=== PATIENT | female | born 1950 ===

== ENCOUNTER 2017-06-17 15:48 | Inpatient (IN) | payer MEDICARE, MEDICAID ==
[2017-06-17] MEDS ORDERED: Sodium Chloride 0.9% 1,000 ML IV STA (16:29)
[2017-06-17 16:46] LABS: BASO # 0.1 K/uL (0.0-0.2); BASO % 1.1 % (0.0-2.0); EOS # 0.2 K/uL (0.0-0.7); EOS % 2.3 % (0.0-4.0); HEMOGLOBIN 12.3 g/dL (11.0-16.0); LYMPH # 2.3 K/uL (1.0-4.3); LYMPH % 32.8 % (20.0-40.0); MEAN CELL VOLUME 87.3 fL (81.0-99.0); MEAN CORPUSCULAR HEMOGLOBIN 30.3 pg (27.0-31.0); MEAN CORPUSCULAR HGB CONC 34.7 g/dL (33.0-37.0); MEAN PLATELET VOLUME 8.1 fL (7.2-11.7); MONO # 0.7 K/uL (0.0-0.8); MONO % 10.2 % (0.0-10.0); NEUT # 3.7 K/uL (1.8-7.0); NEUT % 53.6 % (50.0-75.0); RBC 4.05 Mil/uL (3.80-5.20); RED CELL DISTRIBUTION WIDTH 13.6 % (11.5-14.5); WHITE BLOOD COUNT 6.9 K/uL (4.8-10.8)
--- NOTE | 2017-06-17 16:55 | C.PDOC ---
History Of Present Illness <Arthur Wayne - Last Filed: 06/17/17 17:15> <Sana Larry - Last Filed: 06/17/17 21:20> 66 year old female, with no significant PMHx, presents to ED for evaluation of chest pain for the past week. Pain described as sharp, located in the right parasternal region, and is worse with palpation and movement. Otherwise, denies fever, chills, cough, SOB, nausea, vomiting, or diaphoresis. (Arthur Wayne) History Per: Patient History/Exam Limitations: no limitations <Arthur Wayne - Last Filed: 06/17/17 17:15> <LaronParisrachel - Last Filed: 06/17/17 21:20> Time Seen by Provider: 06/17/17 16:09 Chief Complaint (Nursing): Chest Pain Past Medical History Reviewed: Historical Data, Nursing Documentation, Vital Signs Family History: States: Unknown Family Hx - Social History Hx Alcohol Use: No Hx Substance Use: No - Immunization History Hx Tetanus Toxoid Vaccination: No Hx Influenza Vaccination: Yes Hx Pneumococcal Vaccination: Yes <Arthur Wayne - Last Filed: 06/17/17 17:15> Vital Signs: Last Vital Signs Temp 98.2 F 06/17/17 17:09 Pulse Resp 19 06/17/17 16:10 BP 121/46 L 06/17/17 16:19 Pulse Ox 96 06/17/17 17:15 Review Of Systems Except As Marked, All Systems Reviewed And Found Negative. Constitutional: Negative for: Fever, Chills Cardiovascular: Positive for: Chest Pain. Negative for: Palpitations Respiratory: Negative for: Cough, Shortness of Breath Gastrointestinal: Negative for: Nausea, Vomiting <Arthur Wayne - Last Filed: 06/17/17 17:15> Physical Exam <Arthur Wayne - Last Filed: 06/17/17 17:15> <Sana Larry - Last Filed: 06/17/17 21:20> - Physical Exam Additional Physical Exam Comments: Constitutional: No acute distress. Head: Normocephalic. Atraumatic. Eyes: PERRL. ENT: Moist mucous membranes. Neck: Supple. Cardiovascular: Regular rate. Radial pulse 2+ bilaterally. Chest: Reproducible right parasternal chest tenderness. Respiratory: Clear to auscultation bilaterally. GI: Soft. Nondistended. RLQ tenderness (Pt was unaware of the abdominal pain until the physical exam). Back: No CVA tenderness. Musculoskeletal: No tenderness or swelling of extremities. Skin: No rash. Neurologic: Alert, no focal deficit. (Arthur Wayne) ED Course And Treatment - Laboratory Results Result Diagrams: 06/17/17 16:43 06/17/17 16:43 O2 Sat by Pulse Oximetry: 96 <Arthur Wayne - Last Filed: 06/17/17 17:15> - Laboratory Results Result Diagrams: 06/17/17 16:43 06/17/17 16:43 <LaronParisdi - Last Filed: 06/17/17 21:20> Medical Decision Making <Arthur Wayne - Last Filed: 06/17/17 17:15> <Sana Larry - Last Filed: 06/17/17 21:20> Medical Decision Making: Plan: Abd & Pelvis CT Blood work Urinalysis Urine culture Chest X-ray IV fluids Reassess EKG: NSR 75bpm. No ST/T wave changes. CXR: Impression: Mild venous congestion. Patchy bibasilar airspace opacities. Mamillated right hemidiaphragm with lobulated density at the right lung base. Correlation with prior study may be helpful if clinically indicated. Bibasilar breast and nipple shadows. Tortuous ectatic aorta. Mild cardiomegaly. (Arthur Wayne) Disposition <Arthur Wayne - Last Filed: 06/17/17 17:15> Discussed With : David Coulter Comment: accepted the pt on his service and took over the care at 9:19PM Doctor Will See Patient In The: Hospital Counseled Patient/Family Regarding: Studies Performed, Diagnosis - Disposition Disposition Time: 19:00 - POA Present On Arrival: None <Paris Larrydi - Last Filed: 06/17/17 21:20> - Disposition Disposition: HOSPITALIZED Condition: FAIR Forms: [facility] (Romanian) - Clinical Impression Clinical Impression: Abdominal pain, Acute cholecystitis due to biliary calculus - Scribe Statement The provider has reviewed the documentation as recorded by the Scribe <RosanaArthur Yared - Last Filed: 06/17/17 17:15> <Sana Larry - Last Filed: 06/17/17 21:20> - Scribe Statement Joealonzo Gilbert All medical record entries made by the Scribe were at my direction and personally dictated by me. I have reviewed the chart and agree that the record accurately reflects my personal performance of the history, physical exam, medical decision making, and the department course for this patient. I have also personally directed, reviewed, and agree with the discharge instructions and disposition. (Arthur Wayne) Decision To Admit <Arthur Wayne - Last Filed: 06/17/17 17:15> - Pt Status Changed To: Hospital Disposition Of: Inpatient - Admit Certification Admit to Inpatient:: After my assessment, the patient will require hospitalization for at least two midnights. This is because of the severity of symptoms shown, intensity of services needed, and/or the medical risk in this patient being treated as an outpatient. - InPatient: Physician Admission Certification: I certify that this patient requires 2 or more midnights of care for the following reason:: After my assessment, the patient will require hospitalization for at least two midnights. This is because of the severity of symptoms shown, intensity of services needed, and/or the medical risk in this patient being treated as an outpatient. - . Bed Request Type: Regular Admitting Physician: David Coulter <Sana Larry - Last Filed: 06/17/17 21:20> - . Patient Diagnosis: Abdominal pain, Acute cholecystitis due to biliary calculus
[2017-06-17 16:59] LABS: ALBUMIN 3.6 g/dL (3.5-5.0); ALT/SGPT 11 U/L (9-52); AST/SGOT 24 U/L (14-36); BLOOD UREA NITROGEN 17 mg/dL (7-17); CALCIUM 8.9 mg/dl (8.6-10.4); GFR AFRICAN-AMERICAN > 60; GFR NON-AFRICAN AMERICAN > 60; LIPASE 93 U/L (23-300)
[2017-06-17 17:04] LABS: SQUAMOUS EPITHIAL 2 /hpf (0-5); URINE BILIRUBIN NEGATIVE (NEGATIVE); URINE BLOOD NEGATIVE (NEGATIVE); URINE CLARITY Clear (Clear); URINE COLOR Yellow (YELLOW); URINE GLUCOSE (UA) NORMAL (Normal); URINE PROTEIN NEGATIVE (NEGATIVE); URINE UROBILINOGEN NORMAL mg/dL (0.2-1.0)
[2017-06-17 17:05] LABS: URINE LEUKOCYTE ESTERASE NEGATIVE Leu/uL (Negative)
[2017-06-17 17:10] LABS: CK-MB 0.49 ng/mL (0.0-3.38)
--- NOTE | 2017-06-17 17:13 | RAD ---
Chest x-ray two views History: Chest pain. Comparison: None available. Findings: Mild venous congestion. Patchy bibasilar airspace opacities. Mamillated right hemidiaphragm with lobulated density at the right lung base. Correlation with prior study may be helpful if clinically indicated. Bibasilar breast and nipple shadows. Tortuous ectatic aorta. Mild cardiomegaly. Degenerative changes spine and shoulders. Impression: Mild venous congestion. Patchy bibasilar airspace opacities. Mamillated right hemidiaphragm with lobulated density at the right lung base. Correlation with prior study may be helpful if clinically indicated. Bibasilar breast and nipple shadows. Tortuous ectatic aorta. Mild cardiomegaly.
[2017-06-17] MEDS ORDERED: Iodixanol 320 MG/ML 100 ML BOTTLE IV ONE (18:03)
--- NOTE | 2017-06-17 21:04 | US ---
EXAM: US Abdomen Complete CLINICAL HISTORY: 66 years old, female; Pain; Abdominal pain; Other: Ruq; Additional info: Ruq pain TECHNIQUE: Real-time ultrasound of the abdomen (complete) with image documentation. COMPARISON: CT - ABD PELVIS IV CONTRAST ONLY 2017-06-17 18:13 FINDINGS: Liver: Fatty infiltration of the liver. Gallbladder: Cholelithiasis with immobile stone in the neck of the gallbladder. Reported positive sonographic Santana sign. No gallbladder wall edema. Common bile duct: No dilation. Pancreas: Incompletely evaluated. Kidneys: No acute abnormality as visualized. No hydronephrosis. Spleen: No acute abnormality as visualized. No splenomegaly. Aorta/IVC: No acute abnormality as visualized. Limited evaluation. IMPRESSION: Cholelithiasis with immobile stone in the neck of the gallbladder. Reported positive sonographic Santana sign. Further evaluation can be performed with nuclear hepatobiliary scan as warranted. Fatty infiltration of the liver.
[2017-06-17] MEDS ORDERED: Sodium Chloride 0.9% 1,000 ML IV ONE (21:32)
[2017-06-17] MEDS ORDERED: Morphine 4 MG/ML VIAL IV PRN (21:58)
[2017-06-17 22:26] LABS: AMYLASE 72 U/L (30-110); LIPASE 70 U/L (23-300)
[2017-06-18 06:42] LABS: ALBUMIN 3.1 g/dL (3.5-5.0); ALT/SGPT 21 U/L (9-52); AST/SGOT 20 U/L (14-36); BLOOD UREA NITROGEN 11 mg/dL (7-17); CALCIUM 8.2 mg/dl (8.6-10.4); GFR AFRICAN-AMERICAN > 60; GFR NON-AFRICAN AMERICAN > 60; HDL CHOLESTEROL 35 mg/dL (30-70)
[2017-06-18 06:50] LABS: LDL CHOLESTEROL 152 mg/dL (0-129)
--- NOTE | 2017-06-18 07:21 | CP.PCM.CON ---
<Masoud Vazquez - Last Filed: 06/18/17 10:56> History of Present Illness - History of Present Illness History of Present Illness: PGY5 GI Fellow Consult Note Patient is a 66yo female with no significant PMHx who presented to the ED with complaint of right sided chest pain. The patient is Gujarati speaking, however daughter at bedside to assist with translation. The patient has complained of intermittent right sided parasternal and substernal chest pain for two years, having work up outside the hospital without any significant findings. Pain became more severe yesterday to the point where patient was in tears and family brought her to the ED with concern for [place]. On examination, she had right sided chest wall tenderness which was reproducible on palpation. Moreover, she had significant RUQ abdominal pain which was only first identified during examination yesterday. Patient states pain is currently in the RUQ, cramping in nature and had been worse before PO intake. U/S performed in the ED shows a gallstone in the neck of the gallbladder without any sign of choledocolithiasis. Lab work is unremarkable except for an indirect hyperbilirubinemia. Patient takes Calcium and B12 supplementation but no other OTC medications/supplements/vitamins. Denies nausea, vomiting, weight loss, change in bowel habits. PMHx: Discussed with patient and denies significant past medical history PSHx: FHx: Discussed with patient and denies significant family history Social: Denies tobacco, EtOH or illicit drug use Endo: Colonoscopy 4 years ago in [place] [address] system ROS performed and negative except where stated. Past Patient History - Infectious Disease Hx of Infectious Diseases: None - Past Medical History & Family History Past Medical History?: Yes - Past Social History Smoking Status: Never Smoked - MUSCULOSKELETAL/RHEUMATOLOGICAL Hx Falls: No - PSYCHIATRIC Hx Substance Use: No - SURGICAL HISTORY Hx Tubal Ligation: Yes Other/Comment: 30 YEARS AGO - ANESTHESIA Hx Anesthesia: Yes Hx Anesthesia Reactions: No Hx Malignant Hyperthermia: No Has any member of the family had a problem w/ anesthesia?: No Meds Allergies/Adverse Reactions: Allergies Allergy/AdvReac Type Severity Reaction Status Date / Time No Known Allergies Allergy Verified 06/17/17 16:16 - Medications Medications: Current Medications Enoxaparin Sodium (Lovenox) 40 mg SC DAILY [facility] Sodium Chloride (Sodium Chloride 0.9%) 1,000 mls @ 80 mls/hr IV .[id number] ONE Stop: 06/18/17 10:01 Last Admin: 06/17/17 22:06 Dose: 80 mls/hr Morphine Sulfate (Morphine) 1 mg IV Q6 PRN PRN Reason: Pain, severe (8-10) Last Admin: 06/18/17 05:27 Dose: 1 mg Pantoprazole Sodium (Protonix Inj) 40 mg IVP DAILY [facility] Pneumococcal Polyvalent Vaccine (Pneumovax 23 Vaccine) 0.5 ml IM .ONCE ONE Stop: 06/20/17 10:01 Physical Exam - Constitutional Appears: Non-toxic, No Acute Distress - Eye Exam Eye Exam: EOMI, PERRL - ENT Exam ENT Exam: Mucous Membranes Moist - Respiratory Exam Respiratory Exam: Clear to Auscultation Bilateral. absent: Rales, Rhonchi, Wheezes - Cardiovascular Exam Cardiovascular Exam: RRR, +S1, +S2 - GI/Abdominal Exam GI & Abdominal Exam: Normal Bowel Sounds, Soft, Tenderness (RUQ, RLQ). absent: Distended, Firm, Guarding, Hernia, Organomegaly, Rigid - Extremities Exam Extremities exam: Positive for: normal inspection. Negative for: pedal edema - Neurological Exam Neurological exam: Alert, Oriented x3 - Psychiatric Exam Psychiatric exam: Normal Affect, Normal Mood - Skin Skin Exam: Dry, Warm Results - Vital Signs Recent Vital Signs: Last Vital Signs Temp 98.1 F 06/18/17 00:16 Pulse 61 06/18/17 00:16 Resp 20 06/18/17 00:16 BP 127/84 06/18/17 00:16 Pulse Ox 97 06/18/17 00:16 - Labs Result Diagrams: 06/17/17 16:43 06/18/17 06:09 Labs: Laboratory Results - last 24 hr 06/17/17 06/17/17 06/17/17 16:43 16:43 16:55 WBC 6.9 RBC 4.05 Hgb 12.3 Hct 35.4 MCV 87.3 MCH 30.3 MCHC 34.7 RDW 13.6 Plt Count 258 MPV 8.1 Neut % (Auto) 53.6 Lymph % (Auto) 32.8 [place] % (Auto) 10.2 H Eos % (Auto) 2.3 Baso % (Auto) 1.1 Neut # (Auto) 3.7 Lymph # (Auto) 2.3 [place] # (Auto) 0.7 Eos # (Auto) 0.2 Baso # (Auto) 0.1 Sodium 139 Potassium 4.4 Chloride 104 Carbon Dioxide 27 Anion Gap 12 BUN 17 Creatinine 0.8 Est GFR ( Amer) > 60 Est GFR (Non-Af Amer) > 60 Random Glucose 99 Calcium 8.9 Total Bilirubin 1.4 H Direct Bilirubin AST 24 ALT 11 Alkaline Phosphatase 82 Total Creatine Kinase 137 H CK-MB (Mass) 0.49 Troponin I < 0.0120 Total Protein 7.1 Albumin 3.6 Globulin 3.5 Albumin/Globulin Ratio 1.0 Triglycerides Cholesterol LDL Cholesterol Direct HDL Cholesterol Amylase Lipase 93 Urine Color Yellow Urine Clarity Clear Urine pH 7.0 Ur Specific [place] 1.012 Urine Protein Negative Urine Glucose (UA) Normal Urine Ketones Negative Urine Blood Negative Urine Nitrate Negative Urine Bilirubin Negative Urine Urobilinogen Normal Ur Leukocyte Esterase Negative Urine WBC (Auto) 2 Urine RBC (Auto) 2 Ur Squamous Epith Cells 2 Hyaline Casts 3-5 H 06/17/17 06/18/17 06/18/17 22:12 06:09 06:09 WBC RBC Hgb Hct MCV MCH MCHC RDW Plt Count MPV Neut % (Auto) Lymph % (Auto) [place] % (Auto) Eos % (Auto) Baso % (Auto) Neut # (Auto) Lymph # (Auto) [place] # (Auto) Eos # (Auto) Baso # (Auto) Sodium 141 Potassium 3.8 Chloride 107 Carbon Dioxide 25 Anion Gap 14 BUN 11 Creatinine 0.7 Est GFR ( Amer) > 60 Est GFR (Non-Af Amer) > 60 Random Glucose 91 Calcium 8.2 L Total Bilirubin 1.7 H Direct Bilirubin 0.2 AST 20 ALT 21 Alkaline Phosphatase 82 Total Creatine Kinase CK-MB (Mass) Troponin I Total Protein 6.2 L Albumin 3.1 L Globulin 3.1 Albumin/Globulin Ratio 1.0 Triglycerides 132 Cholesterol 199 LDL Cholesterol Direct 152 H HDL Cholesterol 35 Amylase 72 Lipase 70 Urine Color Urine Clarity Urine pH Ur Specific [place] Urine Protein Urine Glucose (UA) Urine Ketones Urine Blood Urine Nitrate Urine Bilirubin Urine Urobilinogen Ur Leukocyte Esterase Urine WBC (Auto) Urine RBC (Auto) Ur Squamous Epith Cells Hyaline Casts Assessment & Plan - Assessment and Plan (Free Text) Assessment: Patient is a 66yo female with no significant PMHx who presented to the ED with complaint of right sided chest pain and was found to have RUQ abdominal pain on examination. -Cholelithiasis with biliary colic -Indirect hyperbilirubinemia, likely Gilbert syndrome Plan: -Pain c/w cholelithiasis/biliary colic without evidence of cholecystitis or choledocolithiasis -Lab work is not c/w choledocolithiasis, U/S showing normal CBD; MRCP not indicated at this time -Calcified stone noted in GB neck on CT; noted on U/S as well -Request surgical consultation -Indirect hyperbilirubinemia noted; likely Gilbert syndrome -Low fat diet unless NPO for surgery -No further recommendations at this time - Date & Time Date: 06/18/17 Time: 07:00 <Gloria Reeves - Last Filed: 06/18/17 14:01> Meds - Medications Medications: Current Medications Enoxaparin Sodium (Lovenox) 40 mg SC DAILY [facility] Last Admin: 06/18/17 11:16 Dose: 40 mg Morphine Sulfate (Morphine) 1 mg IV Q6 PRN PRN Reason: Pain, severe (8-10) Last Admin: 06/18/17 05:27 Dose: 1 mg Pantoprazole Sodium (Protonix Inj) 40 mg IVP DAILY [facility] Last Admin: 06/18/17 11:15 Dose: 40 mg Pneumococcal Polyvalent Vaccine (Pneumovax 23 Vaccine) 0.5 ml IM .ONCE ONE Stop: 06/20/17 10:01 Results - Vital Signs Recent Vital Signs: Last Vital Signs Temp 97.7 F 06/18/17 07:40 Pulse 57 L 06/18/17 07:40 Resp 20 06/18/17 07:40 BP 113/73 06/18/17 07:40 Pulse Ox 97 06/18/17 07:40 - Labs Result Diagrams: 06/17/17 16:43 06/18/17 06:09 Labs: Laboratory Results - last 24 hr 06/17/17 06/17/17 06/17/17 16:43 16:43 16:55 WBC 6.9 RBC 4.05 Hgb 12.3 Hct 35.4 MCV 87.3 MCH 30.3 MCHC 34.7 RDW 13.6 Plt Count 258 MPV 8.1 Neut % (Auto) 53.6 Lymph % (Auto) 32.8 [place] % (Auto) 10.2 H Eos % (Auto) 2.3 Baso % (Auto) 1.1 Neut # (Auto) 3.7 Lymph # (Auto) 2.3 [place] # (Auto) 0.7 Eos # (Auto) 0.2 Baso # (Auto) 0.1 Sodium 139 Potassium 4.4 Chloride 104 Carbon Dioxide 27 Anion Gap 12 BUN 17 Creatinine 0.8 Est GFR ( Amer) > 60 Est GFR (Non-Af Amer) > 60 Random Glucose 99 Calcium 8.9 Total Bilirubin 1.4 H Direct Bilirubin AST 24 ALT 11 Alkaline Phosphatase 82 Total Creatine Kinase 137 H CK-MB (Mass) 0.49 Troponin I < 0.0120 Total Protein 7.1 Albumin 3.6 Globulin 3.5 Albumin/Globulin Ratio 1.0 Triglycerides Cholesterol LDL Cholesterol Direct HDL Cholesterol Amylase Lipase 93 Urine Color Yellow Urine Clarity Clear Urine pH 7.0 Ur Specific [place] 1.012 Urine Protein Negative Urine Glucose (UA) Normal Urine Ketones Negative Urine Blood Negative Urine Nitrate Negative Urine Bilirubin Negative Urine Urobilinogen Normal Ur Leukocyte Esterase Negative Urine WBC (Auto) 2 Urine RBC (Auto) 2 Ur Squamous Epith Cells 2 Hyaline Casts 3-5 H 06/17/17 06/18/17 06/18/17 22:12 06:09 06:09 WBC RBC Hgb Hct MCV MCH MCHC RDW Plt Count MPV Neut % (Auto) Lymph % (Auto) [place] % (Auto) Eos % (Auto) Baso % (Auto) Neut # (Auto) Lymph # (Auto) [place] # (Auto) Eos # (Auto) Baso # (Auto) Sodium 141 Potassium 3.8 Chloride 107 Carbon Dioxide 25 Anion Gap 14 BUN 11 Creatinine 0.7 Est GFR ( Amer) > 60 Est GFR (Non-Af Amer) > 60 Random Glucose 91 Calcium 8.2 L Total Bilirubin 1.7 H Direct Bilirubin 0.2 AST 20 ALT 21 Alkaline Phosphatase 82 Total Creatine Kinase CK-MB (Mass) Troponin I Total Protein 6.2 L Albumin 3.1 L Globulin 3.1 Albumin/Globulin Ratio 1.0 Triglycerides 132 Cholesterol 199 LDL Cholesterol Direct 152 H HDL Cholesterol 35 Amylase 72 Lipase 70 Urine Color Urine Clarity Urine pH Ur Specific [place] Urine Protein Urine Glucose (UA) Urine Ketones Urine Blood Urine Nitrate Urine Bilirubin Urine Urobilinogen Ur Leukocyte Esterase Urine WBC (Auto) Urine RBC (Auto) Ur Squamous Epith Cells Hyaline Casts Attending/Attestation - Attestation I have personally seen and examined this patient.: Yes I have fully participated in the care of the patient.: Yes I have reviewed all pertinent clinical information: Yes Notes (Text): 06/18/17 13:57 This is a 66 yr old Ch[place] speaking F admitted with RUQ pain intermittent for past two years. The pain intensified and hence she presented to the ER yesterday. Denies fever, chills or Tb above 4. CTAP shows calcified stone in neck of GB. MRCP pending. Will recommend cholecystectomy as indicated due to the above. Rest of plan as per surgical service.
--- NOTE | 2017-06-18 07:50 | CP.PCM.HP ---
History of Present Illness - History of Present Illness History of Present Illness: A 66 year old [place] female, well known to my office came for right lower chest pain yesterday afternoon. She is a vegetarian and has been doing fine except knee arthritis pain. She developed pain on right side lower area, her daughter was worried about heart attack and brought her to ER. She has had on and off pain on epigastric area for two weeks. She denied nausea, vomiting, anorexia or diarrhea. Present on Admission - Present on Admission Any Indicators Present on Admission: No History of DVT/PE: No History of Uncontrolled Diabetes: No Urinary Catheter: No Decubitus Ulcer Present: No Review of Systems - Constitutional Constitutional: absent: Anorexia - Cardiovascular Cardiovascular: Chest Pain - Respiratory Respiratory: absent: Cough - Gastrointestinal Gastrointestinal: Abdominal Pain. absent: Nausea, Vomiting - Genitourinary Genitourinary: absent: Dysuria Past Patient History - Infectious Disease Hx of Infectious Diseases: None - Past Medical History & Family History Past Medical History?: Yes - Past Social History Smoking Status: Never Smoked - MUSCULOSKELETAL/RHEUMATOLOGICAL Hx Falls: No - PSYCHIATRIC Hx Substance Use: No - SURGICAL HISTORY Hx Tubal Ligation: Yes Other/Comment: 30 YEARS AGO - ANESTHESIA Hx Anesthesia: Yes Hx Anesthesia Reactions: No Hx Malignant Hyperthermia: No Has any member of the family had a problem w/ anesthesia?: No Meds Allergies/Adverse Reactions: Allergies Allergy/AdvReac Type Severity Reaction Status Date / Time No Known Allergies Allergy Verified 06/17/17 16:16 Physical Exam - Constitutional Appears: Non-toxic, No Acute Distress - Eye Exam Eye Exam: absent: Scleral icterus - Neck Exam Neck exam: Positive for: Full Rom - Cardiovascular Exam Cardiovascular Exam: REGULAR RHYTHM, +S1, +S2. absent: Systolic Murmur - GI/Abdominal Exam GI & Abdominal Exam: Normal Bowel Sounds, Soft, Tenderness (epigastric area) - Rectal Exam Rectal Exam: Deferred Results - Vital Signs Recent Vital Signs: Last Vital Signs Temp 97.7 F 06/18/17 07:40 Pulse 57 L 06/18/17 07:40 Resp 20 06/18/17 07:40 BP 113/73 06/18/17 07:40 Pulse Ox 97 06/18/17 07:40 - Labs Result Diagrams: 06/17/17 16:43 06/18/17 06:09 Labs: Laboratory Results - last 24 hr 06/17/17 06/17/17 06/17/17 16:43 16:43 16:55 WBC 6.9 RBC 4.05 Hgb 12.3 Hct 35.4 MCV 87.3 MCH 30.3 MCHC 34.7 RDW 13.6 Plt Count 258 MPV 8.1 Neut % (Auto) 53.6 Lymph % (Auto) 32.8 [place] % (Auto) 10.2 H Eos % (Auto) 2.3 Baso % (Auto) 1.1 Neut # (Auto) 3.7 Lymph # (Auto) 2.3 [place] # (Auto) 0.7 Eos # (Auto) 0.2 Baso # (Auto) 0.1 Sodium 139 Potassium 4.4 Chloride 104 Carbon Dioxide 27 Anion Gap 12 BUN 17 Creatinine 0.8 Est GFR ( Amer) > 60 Est GFR (Non-Af Amer) > 60 Random Glucose 99 Calcium 8.9 Total Bilirubin 1.4 H Direct Bilirubin AST 24 ALT 11 Alkaline Phosphatase 82 Total Creatine Kinase 137 H CK-MB (Mass) 0.49 Troponin I < 0.0120 Total Protein 7.1 Albumin 3.6 Globulin 3.5 Albumin/Globulin Ratio 1.0 Triglycerides Cholesterol LDL Cholesterol Direct HDL Cholesterol Amylase Lipase 93 Urine Color Yellow Urine Clarity Clear Urine pH 7.0 Ur Specific [place] 1.012 Urine Protein Negative Urine Glucose (UA) Normal Urine Ketones Negative Urine Blood Negative Urine Nitrate Negative Urine Bilirubin Negative Urine Urobilinogen Normal Ur Leukocyte Esterase Negative Urine WBC (Auto) 2 Urine RBC (Auto) 2 Ur Squamous Epith Cells 2 Hyaline Casts 3-5 H 06/17/17 06/18/17 06/18/17 22:12 06:09 06:09 WBC RBC Hgb Hct MCV MCH MCHC RDW Plt Count MPV Neut % (Auto) Lymph % (Auto) [place] % (Auto) Eos % (Auto) Baso % (Auto) Neut # (Auto) Lymph # (Auto) [place] # (Auto) Eos # (Auto) Baso # (Auto) Sodium 141 Potassium 3.8 Chloride 107 Carbon Dioxide 25 Anion Gap 14 BUN 11 Creatinine 0.7 Est GFR ( Amer) > 60 Est GFR (Non-Af Amer) > 60 Random Glucose 91 Calcium 8.2 L Total Bilirubin 1.7 H Direct Bilirubin 0.2 AST 20 ALT 21 Alkaline Phosphatase 82 Total Creatine Kinase CK-MB (Mass) Troponin I Total Protein 6.2 L Albumin 3.1 L Globulin 3.1 Albumin/Globulin Ratio 1.0 Triglycerides 132 Cholesterol 199 LDL Cholesterol Direct 152 H HDL Cholesterol 35 Amylase 72 Lipase 70 Urine Color Urine Clarity Urine pH Ur Specific [place] Urine Protein Urine Glucose (UA) Urine Ketones Urine Blood Urine Nitrate Urine Bilirubin Urine Urobilinogen Ur Leukocyte Esterase Urine WBC (Auto) Urine RBC (Auto) Ur Squamous Epith Cells Hyaline Casts Assessment & Plan - Assessment and Plan (Free Text) Assessment: A 66 year old female came for right lower chest pain ultrasound and CT showed GB neck stones normal LFT except mild hyperbilirubinemia no fever no leukocytosis biliary colic ? Plan: as per GI, surgery consultation no need for NPO now as per GI unless surgery is done continue GI and DVT prophylaxis - Date & Time Date: 06/18/17 Time: 07:53
--- NOTE | 2017-06-18 08:15 | CT ---
CT abdomen and pelvis History: Right lower quadrant abdominal pain. Comparison: None available. Technique: Multiple contiguous axial images were performed through the abdomen and pelvis with intravenous contrast. Subsequently, sagittal and coronal reformatted images were obtained. This CT exam was performed using one or more of the following dose reduction techniques: Automated exposure control, adjustment of the mA and/or kV according to patient size, and/or use of iterative reconstruction technique. Findings: Study limited secondary to prominent patient motion artifact. Small airway trapping and microatelectasis. 3 millimeter nodular density at the lateral aspect of the right lower lobe. Mild cardiomegaly and coronary calcifications. Hepatomegaly and fatty infiltration of the liver. 4 millimeter rounded hyperattenuated focus in the right hepatic lobe on series 3, image 38, indeterminate. This may be better evaluated with multiphasic CT if clinically indicated. Distended gallbladder with calculi. Mild fatty atrophy of the pancreas. Spleen preserved. Adrenal glands are preserved. Kidneys and ureters are preserved. Mild prominence of the bilateral renal collecting systems without definite obstructive uropathy. Stomach is distended with semi solid food. Small hiatal hernia. Small fat containing non bowel containing umbilical hernia. Diverticulosis. Normal appendix. Incomplete urinary bladder distention prominent wall. Pericystic induration. Cystitis not excluded. Clinical correlation. Uterus is mildly prominent likely reflective of parity or myomata. Spondylosis and facet arthrosis in the spine. Incidental mesenteric vascular collaterals. Atheromatous changes of a normal caliber aorta. Small benign-appearing lymph nodes probably reactive. Impression: 1. Incomplete urinary bladder distention with prominent wall thickness. Pericystic induration. Clinical correlation to exclude possible cystitis. 2. Cholelithiasis. 3. Appendix appears preserved. 4. Hepatomegaly and fatty infiltration of the liver. 4 millimeter rounded hyperattenuated focus in the right hepatic lobe on series 3, image 38, indeterminate. This may be better evaluated with multiphasic CT if clinically indicated. 5. 3 millimeter nodular density at the lateral aspect of the right lower lobe. 6. Mild fatty atrophy of the pancreas. 7. Mild prominence of the bilateral renal collecting systems without definite obstructive uropathy. 8. Uterus is mildly prominent likely reflective of parity or myomata. Additional findings as above. These findings were preliminarily reported at 6:56 p.m. on 06/17/[address] Alize Patel from [facility].
[2017-06-18] MEDS ORDERED: Enoxaparin 40 mg Syringe SC SCH (10:00)
--- NOTE | 2017-06-18 10:01 | CP.PCM.CON ---
<AmiFélix R - Last Filed: 06/18/17 12:12> History of Present Illness - History of Present Illness History of Present Illness: PGY-1 surgery consult note for Dr Suggs HPI: Mrs Hussein is a 66 year old [place] female who was brought to [facility] ER by her daughter for worsening epigastric and right-sided abdominal pain. Patient states the pain has been intermittent for the past 2 years that resolved on its own, but in the past 2 days the pain has become more intense and more frequent. She describes the pain as cramp-like rated 10/10. She sometimes take OTC ibuprofen for pain control which is no longer controlling her pain. She does not associate the pain with food. She denies recent subjective fevers, nausea, diarrhea, emesis. She denies ever having right-sided chest pain. U/S performed in the ED shows a gallstone in the neck of the gallbladder without any sign of choledocolithiasis. CT abdomen/pelvis showed distended gallbladder with calculi. PMHx: Discussed with patient and denies significant past medical history PSHx: Tubal Ligation 30 years ago in [place] (She could not describe exactly what was done, but to com writer is sounds like a Tubal Ligation) FHx: Discussed with patient and denies significant family history Social: Denies tobacco, EtOH or illicit drug use Home Meds: Calcium tablets, Vitamin D tablet QWK Endo: Colonoscopy 4 years ago in [place], [place] 12 system ROS performed and negative except where stated. Review of Systems - Constitutional Constitutional: absent: Chills, Fatigue, Fever, Lethargy, Night Sweats, Weight Loss - EENT Eyes: absent: Change in Vision - Cardiovascular Cardiovascular: absent: Chest Pain, Diaphoresis, Pain Radiating to Arm/Neck/Jaw , Orthopnea - Respiratory Respiratory: absent: Cough, Wheezing - Gastrointestinal Gastrointestinal: Abdominal Pain. absent: Coffee Ground Emesis, Constipation, Diarrhea, Early Satiety, Hematochezia, Loose Stools Additional comments: Right upper and Right lower quadrant abdominal pain - Genitourinary Genitourinary: absent: Dysuria - Reproductive: Female Reproductive:Female: Post Menopausal - Musculoskeletal Musculoskeletal: absent: Arthralgias - Integumentary Integumentary: absent: Bleeding Lesions - Neurological Neurological: absent: Confusion Past Patient History - Infectious Disease Hx of Infectious Diseases: None - Past Medical History & Family History Past Medical History?: Yes - Past Social History Smoking Status: Never Smoked - MUSCULOSKELETAL/RHEUMATOLOGICAL Hx Falls: No - PSYCHIATRIC Hx Substance Use: No - SURGICAL HISTORY Hx Tubal Ligation: Yes Other/Comment: 30 YEARS AGO - ANESTHESIA Hx Anesthesia: Yes Hx Anesthesia Reactions: No Hx Malignant Hyperthermia: No Has any member of the family had a problem w/ anesthesia?: No Meds Allergies/Adverse Reactions: Allergies Allergy/AdvReac Type Severity Reaction Status Date / Time No Known Allergies Allergy Verified 06/17/17 16:16 - Medications Medications: Current Medications Enoxaparin Sodium (Lovenox) 40 mg SC DAILY [facility] Sodium Chloride (Sodium Chloride 0.9%) 1,000 mls @ 80 mls/hr IV .[id number] ONE Stop: 06/18/17 10:01 Last Admin: 06/17/17 22:06 Dose: 80 mls/hr Morphine Sulfate (Morphine) 1 mg IV Q6 PRN PRN Reason: Pain, severe (8-10) Last Admin: 06/18/17 05:27 Dose: 1 mg Pantoprazole Sodium (Protonix Inj) 40 mg IVP DAILY [facility] Pneumococcal Polyvalent Vaccine (Pneumovax 23 Vaccine) 0.5 ml IM .ONCE ONE Stop: 06/20/17 10:01 Physical Exam - Constitutional Appears: Well, No Acute Distress - Head Exam Head Exam: ATRAUMATIC, NORMAL INSPECTION - Eye Exam Eye Exam: EOMI Pupil Exam: PERRL - ENT Exam ENT Exam: Mucous Membranes Moist - Neck Exam Neck exam: Positive for: Normal Inspection. Negative for: Lymphadenopathy, Tenderness - Respiratory Exam Respiratory Exam: Clear to Auscultation Bilateral, NORMAL BREATHING PATTERN. absent: Rales, Rhonchi, Wheezes - Cardiovascular Exam Cardiovascular Exam: REGULAR RHYTHM, +S1, +S2. absent: Bradycardia, Tachycardia , JVD, Systolic Murmur - GI/Abdominal Exam GI & Abdominal Exam: Normal Bowel Sounds, Soft. absent: Distended, Firm, Guarding, Hernia, Mass, Tenderness - Extremities Exam Extremities exam: Positive for: normal capillary refill, normal inspection, pedal pulses present. Negative for: calf tenderness - Back Exam Back exam: NORMAL INSPECTION. absent: CVA tenderness (R), rash noted - Neurological Exam Neurological exam: Alert, Oriented x3 - Psychiatric Exam Psychiatric exam: Normal Affect, Normal Mood - Skin Skin Exam: Intact, Normal Color, Warm Results - Vital Signs Recent Vital Signs: Last Vital Signs Temp 97.7 F 06/18/17 07:40 Pulse 57 L 06/18/17 07:40 Resp 20 06/18/17 07:40 BP 113/73 06/18/17 07:40 Pulse Ox 97 06/18/17 07:40 - Labs Result Diagrams: 06/17/17 16:43 06/18/17 06:09 Labs: Laboratory Results - last 24 hr 06/17/17 06/17/17 06/17/17 16:43 16:43 16:55 WBC 6.9 RBC 4.05 Hgb 12.3 Hct 35.4 MCV 87.3 MCH 30.3 MCHC 34.7 RDW 13.6 Plt Count 258 MPV 8.1 Neut % (Auto) 53.6 Lymph % (Auto) 32.8 [place] % (Auto) 10.2 H Eos % (Auto) 2.3 Baso % (Auto) 1.1 Neut # (Auto) 3.7 Lymph # (Auto) 2.3 [place] # (Auto) 0.7 Eos # (Auto) 0.2 Baso # (Auto) 0.1 Sodium 139 Potassium 4.4 Chloride 104 Carbon Dioxide 27 Anion Gap 12 BUN 17 Creatinine 0.8 Est GFR ( Amer) > 60 Est GFR (Non-Af Amer) > 60 Random Glucose 99 Calcium 8.9 Total Bilirubin 1.4 H Direct Bilirubin AST 24 ALT 11 Alkaline Phosphatase 82 Total Creatine Kinase 137 H CK-MB (Mass) 0.49 Troponin I < 0.0120 Total Protein 7.1 Albumin 3.6 Globulin 3.5 Albumin/Globulin Ratio 1.0 Triglycerides Cholesterol LDL Cholesterol Direct HDL Cholesterol Amylase Lipase 93 Urine Color Yellow Urine Clarity Clear Urine pH 7.0 Ur Specific [place] 1.012 Urine Protein Negative Urine Glucose (UA) Normal Urine Ketones Negative Urine Blood Negative Urine Nitrate Negative Urine Bilirubin Negative Urine Urobilinogen Normal Ur Leukocyte Esterase Negative Urine WBC (Auto) 2 Urine RBC (Auto) 2 Ur Squamous Epith Cells 2 Hyaline Casts 3-5 H 06/17/17 06/18/17 06/18/17 22:12 06:09 06:09 WBC RBC Hgb Hct MCV MCH MCHC RDW Plt Count MPV Neut % (Auto) Lymph % (Auto) [place] % (Auto) Eos % (Auto) Baso % (Auto) Neut # (Auto) Lymph # (Auto) [place] # (Auto) Eos # (Auto) Baso # (Auto) Sodium 141 Potassium 3.8 Chloride 107 Carbon Dioxide 25 Anion Gap 14 BUN 11 Creatinine 0.7 Est GFR ( Amer) > 60 Est GFR (Non-Af Amer) > 60 Random Glucose 91 Calcium 8.2 L Total Bilirubin 1.7 H Direct Bilirubin 0.2 AST 20 ALT 21 Alkaline Phosphatase 82 Total Creatine Kinase CK-MB (Mass) Troponin I Total Protein 6.2 L Albumin 3.1 L Globulin 3.1 Albumin/Globulin Ratio 1.0 Triglycerides 132 Cholesterol 199 LDL Cholesterol Direct 152 H HDL Cholesterol 35 Amylase 72 Lipase 70 Urine Color Urine Clarity Urine pH Ur Specific [place] Urine Protein Urine Glucose (UA) Urine Ketones Urine Blood Urine Nitrate Urine Bilirubin Urine Urobilinogen Ur Leukocyte Esterase Urine WBC (Auto) Urine RBC (Auto) Ur Squamous Epith Cells Hyaline Casts Assessment & Plan (1) Cholelithiases Assessment and Plan: NPO for now Pain control with Morphine 1mg IVP Q6H PRN HOLD anticoagulation MRCP and abdomen w/o contrast to evaluate biliary system Possible OR later today pending MRCP results Imaging: CT abd/pelvis: * 1. Incomplete urinary bladder distention with prominent wall thickness. Pericystic induration. Clinical correlation to exclude possible cystitis. 2. Cholelithiasis. 3. Appendix appears preserved. 4. Hepatomegaly and fatty infiltration of the liver. 4 millimeter rounded hyperattenuated focus in the right hepatic lobe on series 3, image 38, indeterminate. This may be better evaluated with multiphasic CT if clinically indicated. 5. 3 millimeter nodular density at the lateral aspect of the right lower lobe. 6. Mild fatty atrophy of the pancreas. 7. Mild prominence of the bilateral renal collecting systems without definite obstructive uropathy. 8. Uterus is mildly prominent likely reflective of parity or myomata. Abdominal Ultrasound: * Cholelithiasis with immobile stone in the neck of the gallbladder. Reported positive sonographic Santana sign. Further evaluation can be performed with nuclear hepatobiliary scan as warranted. Fatty infiltration of the liver. Discussed with surgical instrument repair specialist, Dr Lorenzo, who discussed with attending Dr Suggs. Status: Acute Priority: High <Gordo Suggs - Last Filed: 06/22/17 17:22> Results - Vital Signs Recent Vital Signs: Last Vital Signs Temp 97.7 F 06/21/17 16:00 Pulse 93 H 06/21/17 16:00 Resp 20 06/21/17 16:00 BP 124/76 06/21/17 16:00 Pulse Ox 96 06/21/17 16:00 - Labs Result Diagrams: 06/21/17 06:15 06/20/17 08:11 Attending/Attestation - Attestation I have personally seen and examined this patient.: Yes I have fully participated in the care of the patient.: Yes I have reviewed all pertinent clinical information: Yes Notes (Text): Pt was seen and examined at bedside Agree with above note and assessment Pt with Acute on chronic cholecystitis and cholelithiasis RUQ tenderness present Labs and radiology reviewed T Asim 1.4 Ass: Acute on chronic cholecystitis and cholelithiasis Plan : MRCP GI consult IV antibiotics c.w current mx Plan d.w pt in detail Risk and benefit explained in detail.
[2017-06-18] MEDS: Sodium Chloride 0.9% 1,000 ML IV SCH (15:02)
--- NOTE | 2017-06-18 18:24 | MRI ---
EXAM: MR Abdomen Without Intravenous Contrast EXAM DATE/TIME: Exam ordered 06/18/2017 10:22 AM CLINICAL HISTORY: 66 years old, female; Pain; Abdominal pain; Acute; Additional info: Biliary system eval TECHNIQUE: Multiplanar magnetic resonance images of the abdomen without intravenous contrast. COMPARISON: No relevant prior studies available. FINDINGS: Lung bases: Unremarkable. No mass. No consolidation. A trace amount of pleural fluid is seen on the right. Liver: There is mild loss of signal within the liver on the out of phase gradient echo sequences suggesting mild fatty infiltration. Gallbladder and bile ducts: There is a gallstone in the neck of the gallbladder. There is no gallbladder wall thickening or pericholecystic fluid. The MRCP portion of the examination appears normal. No ductal dilatation. No choledocholithiasis.. Pancreas: Unremarkable. No ductal dilation. Spleen: Unremarkable. No splenomegaly. Adrenals: Unremarkable. No mass. Kidneys and ureters: Unremarkable. No hydronephrosis. Stomach and bowel: Unremarkable. No obstruction. Intraperitoneal space: Unremarkable. No significant fluid collection. Soft tissues: Unremarkable. Vasculature: Unremarkable. No abdominal aortic aneurysm. Lymph nodes: Unremarkable. No enlarged lymph nodes. IMPRESSION: 1. Gallstone in the neck of the gallbladder. No gallbladder wall thickening or pericholecystic fluid. No ductal dilatation. No choledocholithiasis. 2. Hepatic steatosis.
[2017-06-19] MEDS: Sodium Chloride 0.9% 1,000 ML IV SCH ×2 (03:45→16:00)
[2017-06-19 06:25] LABS: BASO # 0.1 K/uL (0.0-0.2); BASO % 0.8 % (0.0-2.0); EOS # 0.1 K/uL (0.0-0.7); EOS % 1.6 % (0.0-4.0); HEMOGLOBIN 11.8 g/dL (11.0-16.0); LYMPH # 2.2 K/uL (1.0-4.3); LYMPH % 34.1 % (20.0-40.0); MEAN CELL VOLUME 87.4 fL (81.0-99.0); MEAN CORPUSCULAR HEMOGLOBIN 29.9 pg (27.0-31.0); MEAN CORPUSCULAR HGB CONC 34.2 g/dL (33.0-37.0); MEAN PLATELET VOLUME 8.1 fL (7.2-11.7); MONO # 0.6 K/uL (0.0-0.8); MONO % 9.1 % (0.0-10.0); NEUT # 3.5 K/uL (1.8-7.0); NEUT % 54.4 % (50.0-75.0); RBC 3.96 Mil/uL (3.80-5.20); RED CELL DISTRIBUTION WIDTH 13.7 % (11.5-14.5); WHITE BLOOD COUNT 6.4 K/uL (4.8-10.8)
--- NOTE | 2017-06-19 07:51 | CP.PCM.PN ---
<AmiFélix R - Last Filed: 06/19/17 07:45> Subjective - Date & Time of Evaluation Date of Evaluation: 06/19/17 Time of Evaluation: 07:45 - Subjective Subjective: PGY-[address] Suggs. No acute events noted overnight. Patient stated her abdominal pain was less today. She understood that she was scheduled for surgery tomorrow. Her main concern was making her daughter aware of the plan. Her only complaint was back pain which she said was most likely due to laying in bed all day. She denied all other prompts upon review of systems. Objective - Vital Signs/Intake and Output Vital Signs (last 24 hours): Temp Pulse Resp BP Pulse Ox 98.1 F 64 20 113/74 98 06/19/17 07:30 06/19/17 07:30 06/19/17 07:30 06/19/17 07:30 06/19/17 07:30 Intake and Output: 06/19/17 06/19/17 06:59 18:59 Intake Total 940 Balance 940 - Medications Medications: Current Medications Enoxaparin Sodium (Lovenox) 40 mg SC DAILY [facility] Last Admin: 06/18/17 11:16 Dose: 40 mg Sodium Chloride (Sodium Chloride 0.9%) 1,000 mls @ 80 mls/hr IV .[id number] [facility] Last Admin: 06/19/17 03:45 Dose: 80 mls/hr Morphine Sulfate (Morphine) 1 mg IV Q6 PRN PRN Reason: Pain, severe (8-10) Last Admin: 06/18/17 05:27 Dose: 1 mg Pantoprazole Sodium (Protonix Inj) 40 mg IVP DAILY [facility] Last Admin: 06/18/17 11:15 Dose: 40 mg Pneumococcal Polyvalent Vaccine (Pneumovax 23 Vaccine) 0.5 ml IM .ONCE ONE Stop: 06/20/17 10:01 - Labs Labs: 06/19/17 06:18 06/18/17 06:09 - Additional Findings Additional findings: - Constitutional Appears: Well, No Acute Distress - Head Exam Head Exam: ATRAUMATIC, NORMAL INSPECTION - Eye Exam Eye Exam: EOMI Pupil Exam: PERRL - ENT Exam ENT Exam: Mucous Membranes Moist - Neck Exam Neck exam: Positive for: Normal Inspection. Negative for: Lymphadenopathy, Tenderness - Respiratory Exam Respiratory Exam: Clear to Auscultation Bilateral, NORMAL BREATHING PATTERN. absent: Rales, Rhonchi, Wheezes - Cardiovascular Exam Cardiovascular Exam: REGULAR RHYTHM, +S1, +S2. absent: Bradycardia, Tachycardia , JVD, Systolic Murmur - GI/Abdominal Exam GI & Abdominal Exam: Normal Bowel Sounds, Soft. absent: Distended, Firm, Guarding, Hernia, Mass, Tenderness - Extremities Exam Extremities exam: Positive for: normal capillary refill, normal inspection, pedal pulses present. Negative for: calf tenderness - Back Exam Back exam: NORMAL INSPECTION. absent: CVA tenderness (R), rash noted - Neurological Exam Neurological exam: Alert, Oriented x3 - Psychiatric Exam Psychiatric exam: Normal Affect, Normal Mood - Skin Skin Exam: Intact, Normal Color, Warm Assessment and Plan (1) Cholelithiases Status: Acute - Assessment and Plan (Free Text) Assessment: (1) Cholelithiases Assessment and Plan: Vegetarian diet - Will make NPO starting tonight Pain control with Morphine 1mg IVP Q6H PRN HOLD anticoagulation MRCP and abdomen w/o contrast NEGATIVE Plan for OR tomorrow 06/20 for likely Laparoscopic Cholecystectomy Imaging: CT abd/pelvis: * 1. Incomplete urinary bladder distention with prominent wall thickness. Pericystic induration. Clinical correlation to exclude possible cystitis. 2. Cholelithiasis. 3. Appendix appears preserved. 4. Hepatomegaly and fatty infiltration of the liver. 4 millimeter rounded hyperattenuated focus in the right hepatic lobe on series 3, image 38, indeterminate. This may be better evaluated with multiphasic CT if clinically indicated. 5. 3 millimeter nodular density at the lateral aspect of the right lower lobe. 6. Mild fatty atrophy of the pancreas. 7. Mild prominence of the bilateral renal collecting systems without definite obstructive uropathy. 8. Uterus is mildly prominent likely reflective of parity or myomata. Abdominal Ultrasound: * Cholelithiasis with immobile stone in the neck of the gallbladder. Reported positive sonographic Santana sign. Further evaluation can be performed with nuclear hepatobiliary scan as warranted. Fatty infiltration of the liver. MRCP and abdomen w/o contrast: * 1. Gallstone in the neck of the gallbladder. No gallbladder wall thickening or pericholecystic fluid. No ductal dilatation. No choledocholithiasis. 2. Hepatic steatosis. Discussed with surgical nurse, Dr Lorenzo, who discussed with attending Dr Suggs. <Gordo Suggs - Last Filed: 06/22/17 17:23> Objective - Vital Signs/Intake and Output Vital Signs (last 24 hours): Temp Pulse Resp BP Pulse Ox 97.7 F 93 H 20 124/76 96 06/21/17 16:00 06/21/17 16:00 06/21/17 16:00 06/21/17 16:00 06/21/17 16:00 - Labs Labs: 06/21/17 06:15 06/20/17 08:11 PT 20.5 SECONDS (9.7-12.2) H 06/20/17 08:11 INR 1.8 06/20/17 08:11 APTT 32 SECONDS (21-34) 06/20/17 08:11 Attending/Attestation - Attestation I have personally seen and examined this patient.: Yes I have fully participated in the care of the patient.: Yes I have reviewed all pertinent clinical information, including history, physical exam and plan: Yes Notes (Text): Pt was seen and examined at bedside Agree with above note and assessment Pt with Acute on chronic cholecystitis and cholelithiasis MRCP is WNL GI consult appreciated Plan : OR for Lap/Robotic Cholecystectomy possible open Consent NPO, IVF IV antibiotics c.w current mx Plan d.w pt in detail Risk and benefit explained in detail.
--- NOTE | 2017-06-19 08:20 | CP.PCM.PN ---
<Masoud Vazquez - Last Filed: 06/19/17 08:50> Subjective - Date & Time of Evaluation Date of Evaluation: 06/19/17 Time of Evaluation: 06:30 - Subjective Subjective: PGY5 GI Fellow Progress Note Patient seen and examined bedside. Continues to have RUQ abdominal pain. No events overnight. 12 system ROS performed and negative except where stated. Objective - Vital Signs/Intake and Output Vital Signs (last 24 hours): Temp Pulse Resp BP Pulse Ox 98.1 F 64 20 113/74 98 06/19/17 07:30 06/19/17 07:30 06/19/17 07:30 06/19/17 07:30 06/19/17 07:30 Intake and Output: 06/19/17 06/19/17 06:59 18:59 Intake Total 940 Balance 940 - Medications Medications: Current Medications Enoxaparin Sodium (Lovenox) 40 mg SC DAILY [facility] Last Admin: 06/18/17 11:16 Dose: 40 mg Sodium Chloride (Sodium Chloride 0.9%) 1,000 mls @ 80 mls/hr IV .[id number] [facility] Last Admin: 06/19/17 03:45 Dose: 80 mls/hr Morphine Sulfate (Morphine) 1 mg IV Q6 PRN PRN Reason: Pain, severe (8-10) Last Admin: 06/18/17 05:27 Dose: 1 mg Pantoprazole Sodium (Protonix Inj) 40 mg IVP DAILY [facility] Last Admin: 06/18/17 11:15 Dose: 40 mg Pneumococcal Polyvalent Vaccine (Pneumovax 23 Vaccine) 0.5 ml IM .ONCE ONE Stop: 06/20/17 10:01 - Labs Labs: 06/19/17 06:18 06/18/17 06:09 - Constitutional Appears: Non-toxic, No Acute Distress - Eye Exam Eye Exam: EOMI, PERRL - ENT Exam ENT Exam: Mucous Membranes Moist - Respiratory Exam Respiratory Exam: Clear to Ausculation Bilateral. absent: Rales, Rhonchi, Wheezes - Cardiovascular Exam Cardiovascular Exam: RRR, +S1, +S2 - GI/Abdominal Exam GI & Abdominal Exam: Soft, Tenderness (RUQ), Normal Bowel Sounds. absent: Distended, Firm, Guarding, Rigid, Organomegaly - Extremities Exam Extremities Exam: Normal Inspection. absent: Pedal Edema - Neurological Exam Neurological Exam: Alert, Awake, Oriented x3 - Psychiatric Exam Psychiatric exam: Normal Affect, Normal Mood - Skin Skin Exam: Dry, Warm Assessment and Plan - Assessment and Plan (Free Text) Assessment: Patient is a 66yo female with no significant PMHx who presented to the ED with complaint of right sided chest pain and was found to have RUQ abdominal pain on examination. -Cholelithiasis with biliary colic -Indirect hyperbilirubinemia, likely Gilbert syndrome Plan: -Cholelithiasis with stone noted in GB neck -MRCP ordered by surgery confirming the same -Recommendations per surgical service -No further work up from GI perspective -Thank you for allowing us to participate in the care of your patient <Wilfrid Asencio - Last Filed: 06/19/17 09:01> Objective - Vital Signs/Intake and Output Vital Signs (last 24 hours): Temp Pulse Resp BP Pulse Ox 98.1 F 64 20 113/74 98 06/19/17 07:30 06/19/17 07:30 06/19/17 07:30 06/19/17 07:30 06/19/17 07:30 Intake and Output: 06/19/17 06/19/17 06:59 18:59 Intake Total 940 Balance 940 - Medications Medications: Current Medications Enoxaparin Sodium (Lovenox) 40 mg SC DAILY [facility] Last Admin: 06/18/17 11:16 Dose: 40 mg Sodium Chloride (Sodium Chloride 0.9%) 1,000 mls @ 80 mls/hr IV .[id number] [facility] Last Admin: 06/19/17 03:45 Dose: 80 mls/hr Morphine Sulfate (Morphine) 1 mg IV Q6 PRN PRN Reason: Pain, severe (8-10) Last Admin: 06/18/17 05:27 Dose: 1 mg Pantoprazole Sodium (Protonix Inj) 40 mg IVP DAILY [facility] Last Admin: 06/18/17 11:15 Dose: 40 mg Pneumococcal Polyvalent Vaccine (Pneumovax 23 Vaccine) 0.5 ml IM .ONCE ONE Stop: 06/20/17 10:01 - Labs Labs: 06/19/17 06:18 06/18/17 06:09 Attending/Attestation - Attestation I have personally seen and examined this patient.: Yes I have fully participated in the care of the patient.: Yes I have reviewed all pertinent clinical information, including history, physical exam and plan: Yes Notes (Text): 06/19/17 08:59 I have seen and examined patient with GI fellow. No acute events overnight. She continues to endorse abdominal pain, most pronounced in RUQ but denies nausea, vomiting, diarrhea, fever/chills. Review of vitals from today are normal. RUQ abdominal pain Cholelithiasis, stone in GB neck MRCP reviewed by me showing no evidence of biliary dilation or choledocholithiasis - Diet as tolerated - LFTs stable, continue to monitor - Suggest surgical intervention with cholecystectomy - No further planned GI interventions, will sign off case. Please reconsult as necessary, thank you.
--- NOTE | 2017-06-19 16:15 | CP.PCM.PN ---
Subjective - Date & Time of Evaluation Date of Evaluation: 06/19/17 Time of Evaluation: 16:13 - Subjective Subjective: no more right side chest pain no epigastric pain no nausea, no vomiting Objective - Vital Signs/Intake and Output Vital Signs (last 24 hours): Temp Pulse Resp BP Pulse Ox 98.1 F 69 20 109/66 99 06/19/17 07:30 06/19/17 14:29 06/19/17 07:30 06/19/17 14:29 06/19/17 14:29 Intake and Output: 06/19/17 06/19/17 06:59 18:59 Intake Total 940 Balance 940 - Medications Medications: Current Medications Enoxaparin Sodium (Lovenox) 40 mg SC DAILY [facility] Last Admin: 06/18/17 11:16 Dose: 40 mg Sodium Chloride (Sodium Chloride 0.9%) 1,000 mls @ 80 mls/hr IV .[id number] [facility] Last Admin: 06/19/17 03:45 Dose: 80 mls/hr Morphine Sulfate (Morphine) 1 mg IV Q6 PRN PRN Reason: Pain, severe (8-10) Last Admin: 06/18/17 05:27 Dose: 1 mg Pantoprazole Sodium (Protonix Inj) 40 mg IVP DAILY [facility] Last Admin: 06/19/17 10:32 Dose: 40 mg Pneumococcal Polyvalent Vaccine (Pneumovax 23 Vaccine) 0.5 ml IM .ONCE ONE Stop: 06/20/17 10:01 - Labs Labs: 06/19/17 06:18 06/18/17 06:09 - Constitutional Appears: No Acute Distress - Respiratory Exam Respiratory Exam: Clear to Ausculation Bilateral, NORMAL BREATHING PATTERN - Cardiovascular Exam Cardiovascular Exam: REGULAR RHYTHM. absent: Murmur - GI/Abdominal Exam GI & Abdominal Exam: Soft, Tenderness (epigastric) Assessment and Plan - Assessment and Plan (Free Text) Assessment: 66 year old female gallstones, neck of gallbladder biliary colic Plan: as per the surgery, laparoscopic cholecystectomy - tomorrow morning continue current care.
--- NOTE | 2017-06-19 19:26 | CARD ---
APPROVED REPORT EKG Measurement Heart [id number] <Conclusion> Normal sinus rhythm Normal ECG
[2017-06-20] MEDS: Sodium Chloride 0.9% 1,000 ML IV SCH ×2 (04:35→22:08)
--- NOTE | 2017-06-20 07:49 | CP.PCM.PN ---
Subjective - Date & Time of Evaluation Date of Evaluation: 06/20/17 Time of Evaluation: 07:47 - Subjective Subjective: mild RUQ pain no nausea stable Objective - Vital Signs/Intake and Output Vital Signs (last 24 hours): Temp Pulse Resp BP Pulse Ox 97.9 F 64 20 147/64 97 06/19/17 23:53 06/19/17 23:53 06/19/17 23:53 06/19/17 23:53 06/19/17 23:53 Intake and Output: 06/20/17 06/20/17 06:59 18:59 Intake Total 1640 Balance 1640 - Medications Medications: Current Medications Enoxaparin Sodium (Lovenox) 40 mg SC DAILY [facility] Last Admin: 06/18/17 11:16 Dose: 40 mg Sodium Chloride (Sodium Chloride 0.9%) 1,000 mls @ 80 mls/hr IV .[id number] [facility] Last Admin: 06/20/17 04:35 Dose: Not Given Morphine Sulfate (Morphine) 1 mg IV Q6 PRN PRN Reason: Pain, severe (8-10) Last Admin: 06/18/17 05:27 Dose: 1 mg Pantoprazole Sodium (Protonix Inj) 40 mg IVP DAILY [facility] Last Admin: 06/19/17 10:32 Dose: 40 mg Pneumococcal Polyvalent Vaccine (Pneumovax 23 Vaccine) 0.5 ml IM .ONCE ONE Stop: 06/20/17 10:01 - Labs Labs: 06/19/17 06:18 06/18/17 06:09 - Constitutional Appears: No Acute Distress - Respiratory Exam Respiratory Exam: Clear to Ausculation Bilateral. absent: Rales - Cardiovascular Exam Cardiovascular Exam: REGULAR RHYTHM. absent: Murmur - GI/Abdominal Exam GI & Abdominal Exam: Soft, Tenderness (mild RUQ and epigastric) Assessment and Plan - Assessment and Plan (Free Text) Assessment: gallstones in GB neck chest X-ray was done. for pre-op Plan: laparoscopic cholecystectomy today as per surgery
[2017-06-20 08:16] LABS: INR 1.8; PROTHROMBIN TIME 20.5 SECONDS (9.7-12.2)
[2017-06-20 08:18] LABS: BASO % 0.4 % (0.0-2.0); EOS # 0.2 K/uL (0.0-0.7); EOS % 2.5 % (0.0-4.0); HEMOGLOBIN 11.8 g/dL (11.0-16.0); LYMPH # 2.5 K/uL (1.0-4.3); LYMPH % 38.1 % (20.0-40.0); MEAN CELL VOLUME 87.1 fL (81.0-99.0); MEAN CORPUSCULAR HEMOGLOBIN 30.4 pg (27.0-31.0); MEAN CORPUSCULAR HGB CONC 34.8 g/dL (33.0-37.0); MEAN PLATELET VOLUME 8.2 fL (7.2-11.7); MONO # 0.5 K/uL (0.0-0.8); MONO % 7.6 % (0.0-10.0); NEUT # 3.3 K/uL (1.8-7.0); NEUT % 51.4 % (50.0-75.0); RBC 3.89 Mil/uL (3.80-5.20); RED CELL DISTRIBUTION WIDTH 13.6 % (11.5-14.5); WHITE BLOOD COUNT 6.5 K/uL (4.8-10.8)
[2017-06-20 08:26] LABS: ALB/GLOB RATIO 1.1 (1.0-2.1); ALBUMIN 3.3 g/dL (3.5-5.0); ALT/SGPT 20 U/L (9-52); AST/SGOT 25 U/L (14-36); BLOOD UREA NITROGEN 6 mg/dL (7-17); CALCIUM 8.5 mg/dl (8.6-10.4); GFR AFRICAN-AMERICAN > 60; GFR NON-AFRICAN AMERICAN > 60
--- NOTE | 2017-06-20 08:42 | RAD ---
PROCEDURE: CHEST RADIOGRAPH, 1 VIEW HISTORY: pre op. COMPARISON: Chest radiograph dated 06/17/2017 FINDINGS: LUNGS: Clear. PLEURA: No pneumothorax or pleural fluid seen. CARDIOVASCULAR: Cardiomediastinal silhouette stably enlarged. OSSEOUS STRUCTURES: Unchanged. VISUALIZED UPPER ABDOMEN: Normal. OTHER FINDINGS: None. IMPRESSION: No active disease.
[2017-06-20] MEDS ORDERED: Pneumococcal 23-Valent Vaccine IM ONE (10:00)
[2017-06-20] MEDS ORDERED: Lidocaine 1% Inj (20ml) INFIL ONE (16:32)
[2017-06-20] MEDS ORDERED: Bupivacaine-Epi 0.25%-1:200,000 PF Inj IJ ONE (16:33)
[2017-06-20] MEDS ORDERED: ceFAZolin 1 gm in NS 2 GM/200 ML BAG IVPB ONE (16:54)
[2017-06-20] MEDS ORDERED: Propofol 10 mg/ml Inj (20 ML) ONE (17:05)
[2017-06-20] MEDS ORDERED: Succinylcholine Chloride 20 mg/ml Syr (5 ml) IV ONE (17:05)
[2017-06-20] MEDS ORDERED: Rocuronium 10 mg/ml (5 ml) ONE (17:06)
[2017-06-20] MEDS ORDERED: Neostigmine Methylsulfate 3mg/3ml Syringe IV ONE (18:13)
--- NOTE | 2017-06-20 19:12 | PCM.SURG1 ---
Surgeon's Initial Post Op Note - Surgeon's Notes Surgeon: Dr. Suggs Watch Adjuster: Lisa LOREDO, Dr. Torres PGY3 Type of Anesthesia: General Endo Pre-Operative Diagnosis: Acute Cholecystitis Operative Findings: same Post-Operative Diagnosis: same Operation Performed: Robotic Cholecystectomy Specimen/Specimens Removed: Gallbladder Estimated Blood Loss: EBL {In ML}: 10 Blood Products Given: N/A Drains Used: No Drains Post-Op Condition: Good Date of Surgery/Procedure: 06/20/17 Time of Surgery/Procedure: 19:12
[2017-06-20] MEDS ORDERED: Oxycodone/Acetaminophen 5/325 mg Tab PO PRN (19:13)
[2017-06-20] MEDS ORDERED: Morphine 4 MG/ML VIAL IV PRN (19:13)
[2017-06-20 19:51] VITALS: RESP 20
[2017-06-21] MEDS: Sodium Chloride 0.9% 1,000 ML IV SCH ×2 (05:30→06:12)
[2017-06-21 06:24] LABS: BASO # 0.1 K/uL (0.0-0.2); BASO % 0.4 % (0.0-2.0); HEMOGLOBIN 12.2 g/dL (11.0-16.0); LYMPH # 0.9 K/uL (1.0-4.3); LYMPH % 7.7 % (20.0-40.0); MEAN CELL VOLUME 86.8 fL (81.0-99.0); MEAN CORPUSCULAR HEMOGLOBIN 29.1 pg (27.0-31.0); MEAN CORPUSCULAR HGB CONC 33.5 g/dL (33.0-37.0); MEAN PLATELET VOLUME 8.2 fL (7.2-11.7); MONO # 0.1 K/uL (0.0-0.8); MONO % 1.1 % (0.0-10.0); NEUT % 90.8 % (50.0-75.0); PLATELET COUNT 255 K/uL (130-400); RED CELL DISTRIBUTION WIDTH 13.8 % (11.5-14.5); WHITE BLOOD COUNT 12.1 K/uL (4.8-10.8)
[2017-06-21 08:38] LABS: BANDS 2 % (0-2); LYMPHOCYTE 8 % (20-40); MONOCYTE 1 % (0-10); NEUTROPHIL 89 % (50-75); PLATELET ESTIMATE NORMAL (NORMAL); TOTAL CELLS COUNTED 100
[2017-06-21 08:39] LABS: ANISOCYTOSIS SLIGHT; POIKILOCYTOSIS SLIGHT
--- NOTE | 2017-06-21 14:09 | CP.PCM.PN ---
<Félix Mueller - Last Filed: 06/21/17 14:06> Subjective - Date & Time of Evaluation Date of Evaluation: 06/21/17 Time of Evaluation: 14:06 - Subjective Subjective: PGY-1 surgery progress note for Dr Suggs. No acute events noted overnight. Patient seen with daughters at bedside. Patient stated she has been doing well after surgery. She denied abdominal pain. She said she walked to the bathroom without difficulty. Has not had a bowel movement yet. Has an appetite and wants to eat. Denied all other prompts on review of systems. Objective - Vital Signs/Intake and Output Vital Signs (last 24 hours): Temp Pulse Resp BP Pulse Ox 98.2 F 93 H 20 124/76 96 06/21/17 07:56 06/21/17 07:56 06/21/17 07:56 06/21/17 07:56 06/21/17 07:56 Intake and Output: 06/21/17 06/21/17 06:59 18:59 Intake Total 1830 Balance 1830 - Medications Medications: Current Medications Enoxaparin Sodium (Lovenox) 40 mg SC DAILY [facility] Last Admin: 06/18/17 11:16 Dose: 40 mg Oxycodone/Acetaminophen (Percocet 5/325 Mg Tab) 1 tab PO Q4H PRN PRN Reason: Pain, moderate (4-7) Stop: 06/23/17 19:14 Pantoprazole Sodium (Protonix Inj) 40 mg IVP DAILY [facility] Last Admin: 06/21/17 10:07 Dose: 40 mg - Labs Labs: 06/21/17 06:15 06/20/17 08:11 PT 20.5 SECONDS (9.7-12.2) H 06/20/17 08:11 INR 1.8 06/20/17 08:11 APTT 32 SECONDS (21-34) 06/20/17 08:11 - Additional Findings Additional findings: - Constitutional Appears: Well, No Acute Distress - Head Exam Head Exam: ATRAUMATIC, NORMAL INSPECTION - Eye Exam Eye Exam: EOMI Pupil Exam: PERRL - ENT Exam ENT Exam: Mucous Membranes Moist - Neck Exam Neck exam: Positive for: Normal Inspection. Negative for: Lymphadenopathy, Tenderness - Respiratory Exam Respiratory Exam: Clear to Auscultation Bilateral, NORMAL BREATHING PATTERN. absent: Rales, Rhonchi, Wheezes - Cardiovascular Exam Cardiovascular Exam: REGULAR RHYTHM, +S1, +S2. absent: Bradycardia, Tachycardia , JVD, Systolic Murmur - GI/Abdominal Exam GI & Abdominal Exam: Normal Bowel Sounds, Soft. absent: Distended, Firm, Guarding, Hernia, Mass Incisions covered by small incision strips; no skin changes noted; very mild tenderness - Extremities Exam Extremities exam: Positive for: normal capillary refill, normal inspection, pedal pulses present. Negative for: calf tenderness - Back Exam Back exam: NORMAL INSPECTION. absent: CVA tenderness (R), rash noted - Neurological Exam Neurological exam: Alert, Oriented x3 - Psychiatric Exam Psychiatric exam: Normal Affect, Normal Mood - Skin Skin Exam: Intact, Normal Color, Warm Assessment and Plan (1) Cholelithiases Status: Acute - Assessment and Plan (Free Text) Assessment: (1) Cholelithiases Assessment and Plan: Status post Robotic Cholecystectomy 06/20/17 Doing well post surgery, with minor pain, tolerating diet, waiting for bowel movement. Okay for discharge per surgery. Imaging: CT abd/pelvis: * 1. Incomplete urinary bladder distention with prominent wall thickness. Pericystic induration. Clinical correlation to exclude possible cystitis. 2. Cholelithiasis. 3. Appendix appears preserved. 4. Hepatomegaly and fatty infiltration of the liver. 4 millimeter rounded hyperattenuated focus in the right hepatic lobe on series 3, image 38, indeterminate. This may be better evaluated with multiphasic CT if clinically indicated. 5. 3 millimeter nodular density at the lateral aspect of the right lower lobe. 6. Mild fatty atrophy of the pancreas. 7. Mild prominence of the bilateral renal collecting systems without definite obstructive uropathy. 8. Uterus is mildly prominent likely reflective of parity or myomata. Abdominal Ultrasound: * Cholelithiasis with immobile stone in the neck of the gallbladder. Reported positive sonographic Santana sign. Further evaluation can be performed with nuclear hepatobiliary scan as warranted. Fatty infiltration of the liver. MRCP and abdomen w/o contrast: * 1. Gallstone in the neck of the gallbladder. No gallbladder wall thickening or pericholecystic fluid. No ductal dilatation. No choledocholithiasis. 2. Hepatic steatosis. Discussed with cardiovascular surgical tech, Dr Lorenzo, who discussed with attending Dr Suggs. <Gordo Suggs Last Filed: 06/22/17 17:26> Objective - Vital Signs/Intake and Output Vital Signs (last 24 hours): Temp Pulse Resp BP Pulse Ox 97.7 F 93 H 20 124/76 96 06/21/17 16:00 06/21/17 16:00 06/21/17 16:00 06/21/17 16:00 06/21/17 16:00 - Labs Labs: 06/21/17 06:15 06/20/17 08:11 PT 20.5 SECONDS (9.7-12.2) H 06/20/17 08:11 INR 1.8 06/20/17 08:11 APTT 32 SECONDS (21-34) 06/20/17 08:11 Attending/Attestation - Attestation I have personally seen and examined this patient.: Yes I have fully participated in the care of the patient.: Yes I have reviewed all pertinent clinical information, including history, physical exam and plan: Yes Notes (Text): Pt can be DC home f.u as out pt Po analgesics Plan d.w primary team
[2017-06-21 16:17] VITALS: TEMP 97.7
[2017-06-21 16:19] VITALS: BP 124/76; PULSE 93; O2SAT 96
--- NOTE | 2017-06-21 20:17 | CP.PCM.PN ---
Subjective - Date & Time of Evaluation Date of Evaluation: 06/21/17 Time of Evaluation: 19:40 - Subjective Subjective: yesterday she had robotic cholecystectomy postop one day minor wound pain Objective - Vital Signs/Intake and Output Vital Signs (last 24 hours): Temp Pulse Resp BP Pulse Ox 97.7 F 93 H 20 124/76 96 06/21/17 16:00 06/21/17 16:00 06/21/17 16:00 06/21/17 16:00 06/21/17 16:00 Intake and Output: 06/21/17 06/22/17 18:59 06:59 Intake Total 1040 Balance 1040 - Medications Medications: Current Medications Enoxaparin Sodium (Lovenox) 40 mg SC DAILY [facility] Last Admin: 06/18/17 11:16 Dose: 40 mg Oxycodone/Acetaminophen (Percocet 5/325 Mg Tab) 1 tab PO Q4H PRN PRN Reason: Pain, moderate (4-7) Stop: 06/23/17 19:14 Pantoprazole Sodium (Protonix Inj) 40 mg IVP DAILY [facility] Last Admin: 06/21/17 10:07 Dose: 40 mg - Labs Labs: 06/21/17 06:15 06/20/17 08:11 PT 20.5 SECONDS (9.7-12.2) H 06/20/17 08:11 INR 1.8 06/20/17 08:11 APTT 32 SECONDS (21-34) 06/20/17 08:11 - Constitutional Appears: No Acute Distress - Respiratory Exam Respiratory Exam: Clear to Ausculation Bilateral - Cardiovascular Exam Cardiovascular Exam: REGULAR RHYTHM. absent: Murmur - GI/Abdominal Exam GI & Abdominal Exam: Soft. absent: Tenderness Assessment and Plan - Assessment and Plan (Free Text) Assessment: gallstones on neck of GB acute cholecystitis POD 1st day Plan: as per surgery, cleared for discharge Discharge patient home. out patient follow up.
--- NOTE | 2017-06-22 06:50 | OP ---
PROCEDURE DATE: 06/20/2017 PREOPERATIVE DIAGNOSES: 1. Acute cholecystitis with cholelithiasis. 2. Leukocytosis and abdominal pain. POSTOPERATIVE DIAGNOSES: 1. Acute cholecystitis with cholelithiasis. 2. Leukocytosis and abdominal pain. 3. Extensive postinfection adhesion. 4. Hydrops of the gallbladder. 5. Incidental umbilical hernia. PROCEDURE DONE: 1. Robotic cholecystectomy. 2. Robotic extensive lysis of adhesion. 3. Robotic aspiration of the hydrops of the gallbladder. 4. Open umbilical hernia repair without mesh, primary closure. SURGEON: The procedure was done by Dr. Es adam. CAN RECONDITIONER: FACUNDO Junior TYPE OF ANESTHESIA: General endotracheal tube anesthesia. ESTIMATED BLOOD LOSS: Around 50 mL. DRAINS: None. COMPLICATIONS: None. PATHOLOGY: 1. Gallbladder with the gallstones was sent for the pathology. 2. Umbilical hernia back and content was sent for the pathology. INTRAOPERATIVE FINDINGS: The patient had extensive phlegmonous cholecystitis with extensive postinfectious adhesion and hydrops of the gallbladder. The patient also had 2 x 1 cm small umbilical hernia containing preperitoneal sac. DESCRIPTION OF PROCEDURE: On intraoperative steps, this is a 66-year-old female who was diagnosed with acute cholecystitis and cholelithiasis, and the patient had abnormality of LFTs and the patient underwent MRCP. The patient was consented for laparoscopic assisted robotic cholecystectomy, possible open, brought to the OR, placed supine on operating table. After induction of the anesthesia, the abdomen was prepped and draped in the usual sterile fashion. The supraumbilical transverse incision was made. After incising skin and subcutaneous tissue and the fascia, the patient was found to have a large umbilical hernia of approximately 2 x 1 cm size. There is a preperitoneal fat and through the umbilical hernial sac, the robotic camera port was placed and pneumo was created. Another three 8-mm robotic camera was placed, and the patient found to have extensive postoperative adhesions due to previous tubal ligation in the right upper quadrant as well as because of infection and with LigaSure, a complete lysis of adhesion was done and after that the robot was brought in. Camera arm as well as arm 1, arm 2 were docked. The patient also had extensive phlegmonous changes surrounding the gallbladder and omentum and colon was adhesed firmly. With blunt and sharp dissection, the lysis of adhesion was done. Gallbladder was retracted cranially and infundibulum was identified. Another lysis of adhesion was done to identify the Calot's triangle. Cystic duct and cystic artery were identified. Intraoperative Firefly was used to identify the ductal anatomy and after confirmation of cystic duct and cystic artery, the duct and artery was clipped at 3 places and cut in between 2 clips nearby gallbladder and gallbladder was dissected free from the gallbladder fossa, taken in an EndoCatch bag, taken out through the umbilical port site and sent off the table for pathology. There was proper hemostasis in each and every part of the procedure, and after proper hemostasis, the Surgicel was placed in the gallbladder fossa and suction irrigation of the perihepatic area and the gallbladder fossa was done. Intraoperatively, due to extremely dilated and thickened gallbladder, the gallbladder was aspirated and the patient found to have hydrops of the gallbladder and after complete aspiration of the gallbladder, the dissection of the gallbladder was done from the surrounding phlegmonous omentum and other changes. After removing all the instruments, robot was undocked. All the ports were taken out under vision and pneumo was deflated. Now the umbilical port site was dissected. The umbilical hernial sac was resected and it was sent off the table for pathology and umbilical hernia was primarily closed with 0 Prolene multiple interrupted sutures. After proper closure of hernial defect, the wound was closed subcu with the 2-0 Vicryl at all port site and skin with 4-0 Monocryl at all the port site and dry sterile dressing was applied. The patient tolerated the procedure well. Count of the instrument and gauze was correct. There was no apparent complication. The patient was extubated in the OR and sent to the Postanesthesia Care Unit in stable condition. Gordo Suggs MD
== END 2017-06-21 21:15 | disposition home or self-care (01) | DRG 415 ==
LOC: C.ER 15:48 → C.9E 21:18 → C.3T 22:02
PROVIDERS: ADMIT Internal Medicine; ATTEND Internal Medicine
PROC: 0WQF0ZZ Repair Abdominal Wall, Open Approach (ICD-10-PCS; 2017-06-20)
PROC: 8E0W0CZ Robotic Assisted Procedure of Trunk Region, Open Approach (ICD-10-PCS; 2017-06-20)
PROC: 0FT40ZZ Resection of Gallbladder, Open Approach (ICD-10-PCS; principal; 2017-06-20 14:30)
DX: K80.00 Calculus of gallbladder with acute cholecystitis without obstruction (principal); K82.1 Hydrops of gallbladder; K86.89 Other specified diseases of pancreas; K66.0 Peritoneal adhesions (postprocedural) (postinfection); K42.9 Umbilical hernia without obstruction or gangrene; I51.7 Cardiomegaly; I77.819 Aortic ectasia, unspecified site; E80.4 Gilbert syndrome